=== PATIENT | female | born 1985 | race Caucasian/White ===

== ENCOUNTER 2021-02-08 20:49 | Emergency (ER) | payer OTHER ==
--- NOTE | 2021-02-08 23:30 | EDPHYS ---
Physician Documentation [facility] Name: Yvette Salgado Age: 35 yrs Sex: Female : 1985 Arrival Date: 02/08/2021 Time: 20:55 Bed 12 Private MD: ED Physician Justice Preston HPI: 02/08 23:28 This 35 yrs old Female presents to ER via Ambulatory with complaints of S/S kb of Covid. 23:28 The patient or guardian reports cough, that is intermittent, described as moderate. kb Onset: The symptoms/episode began/occurred 3 day(s) ago. Severity of symptoms: At their worst the symptoms were moderate, in the emergency department the symptoms are unchanged. Modifying factors: The symptoms are alleviated by nothing, the symptoms are aggravated by nothing. Associated signs and symptoms: Pertinent positives: diarrhea, nausea, sore throat, vomiting. The patient has not experienced similar symptoms in the past. The patient has not recently seen a physician. 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 - Social history:: Smoking status: Reported history of juuling and/or vaping. ROS: 23:28 Cardiovascular: Negative for chest pain, palpitations, and edema. kb 23:28 Constitutional: Positive for body aches, chills. 23:28 ENT: Positive for sore throat. 23:28 Respiratory: Positive for cough. 23:28 Abdomen/GI: Positive for nausea, vomiting, and diarrhea. 23:28 All other systems are negative. Exam: 23:28 Constitutional: This is a well developed, well nourished patient who is awake, alert, kb and in no acute distress. Head/Face: Normocephalic, atraumatic. ENT: Moist Mucous membranes Cardiovascular: Regular rate and rhythm with a normal S1 and S2. No gallops, murmurs, or rubs. No pulse deficits. Respiratory: Respirations even and unlabored. No increased work of breathing, no retractions or nasal flaring. Abdomen/GI: Soft, non-tender. No distention Skin: Warm, dry with normal turgor. Normal color. MS/ Extremity: Pulses equal, no cyanosis. Neurovascular intact. Full, normal range of motion. Neuro: Awake and alert, GCS 15, oriented to person, place, time, and situation. Moves all extremities. Normal gait. Psych: Awake, alert, with orientation to person, place and time. Behavior, mood, and affect are within normal limits. Vital Signs: 21:48 BP 120 / 82; Pulse 63; Resp 20; Temp 97.3; Pulse Ox 99% on R/A; Weight 65.77 kg; Height wg 5 ft. 7 in. (170.18 cm); Pain 7/10; 23:41 BP 108 / 63; Pulse 60; Resp 20; Pulse Ox 100% on R/A; ld1 21:48 Body Mass Index 22.71 (65.77 kg, 170.18 cm) wg MDM: 21:53 Patient medically screened. kb 23:28 Data reviewed: vital signs, nurses notes. Data interpreted: Pulse oximetry: on room air kb is 99 %. Interpretation: normal. Counseling: I had a detailed discussion with the patient and/or guardian regarding: the historical points, exam findings, and any diagnostic results supporting the discharge/admit diagnosis, lab results, the need for outpatient follow up, a family practitioner, to return to the emergency department if symptoms worsen or persist or if there are any questions or concerns that arise at home. 02/08 21:53 Order name: Flu; Complete Time: 23:05 kb 02/08 21:53 Order name: Strep; Complete Time: 23:05 kb 02/08 22:54 Order name: Throat Culture EDMS 02/08 23:27 Order name: SARS-COV-2 RT PCR; Complete Time: 23:27 EDNY Administered Medications: No medications were administered Disposition: 02/09 07:59 Co-signature as Attending Physician, Justice Preston MD I agree with the assessment and maricarmen plan of care. Disposition Summary: 02/08/21 23:29 Discharge Ordered Location: Home kb Condition: Stable kb Diagnosis - Acute upper respiratory infection, unspecified kb Followup: kb - With: Emergency Department - When: As needed - Reason: Worsening of condition Followup: kb - With: Private Physician - When: 2 - 3 days - Reason: Recheck today's complaints, Continuance of care, Re-evaluation by your physician Discharge Instructions: - Discharge Summary Sheet kb - Upper Respiratory Infection, Adult, [id number] kb - Viral Respiratory Infection, [id number] kb Forms: - Medication Reconciliation Form kb - Thank You Letter kb - Antibiotic Education kb - Prescription Opioid Use kb Prescriptions: - Zofran 4 mg Oral Tablet - take 1 tablet by ORAL route every 6 hours As needed; 20 tablet; Refills: 0, kb Product Selection Permitted Signatures: Dispatcher [employer] EDAnjelica Johnson FNP-C FNP-Ckb Anderson, Corey, MD MD cha Gamba, Liam, RN souleymane Corrections: (The following items were deleted from the chart) 02/08 21:53 21:52 PMHx: None; 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 EDNY EDNY
--- NOTE | 2021-02-08 23:30 | ER ---
Nurse's Notes [facility] Name: Yvette Salgado Age: 35 yrs Sex: Female : 1985 Arrival Date: 02/08/2021 Time: 20:55 Bed 12 Private MD: Diagnosis: Acute upper respiratory infection, unspecified Presentation: 02/08 21:48 Chief complaint: Patient states: Fever and cough and chills started two days ago. wg N/V/D, urinating slightly less. Coronavirus screen: Vaccine status: Patient reports being unvaccinated. Client presents with at least one sign or symptom that may indicate coronavirus-19. Standard/surgical mask placed on the client. Ebola Screen: Patient negative for fever greater than or equal to 101.5 degrees Fahrenheit, and additional compatible Ebola Virus Disease symptoms Patient denies exposure to infectious person. Patient denies travel to an Ebola-affected area in the 21 days before illness onset. No symptoms or risks identified at this time. Initial Sepsis Screen: Does the patient meet any 2 criteria? No. Patient's initial sepsis screen is negative. Does the patient have a suspected source of infection? No. Patient's initial sepsis screen is negative. Risk Assessment: Do you want to hurt yourself or someone else? Patient reports no desire to harm self or others. Onset of symptoms was February 06, 2021. Care prior to arrival: Medication(s) given: Motrin. 21:48 Method Of Arrival: Ambulatory wg 21:48 Acuity: ANABELLE 4 wg Triage Assessment: 21:52 General: Appears uncomfortable, slender, well groomed, Behavior is calm, cooperative, wg appropriate for age. Pain: Complains of pain in Throat. 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 - Social history:: Smoking status: Reported history of juuling and/or vaping. Vital Signs: 21:48 BP 120 / 82; Pulse 63; Resp 20; Temp 97.3; Pulse Ox 99% on R/A; Weight 65.77 kg; Height wg 5 ft. 7 in. (170.18 cm); Pain 7/10; 23:41 BP 108 / 63; Pulse 60; Resp 20; Pulse Ox 100% on R/A; ld1 21:48 Body Mass Index 22.71 (65.77 kg, 170.18 cm) ED Course: 20:55 Patient arrived in ED. 20:57 Anjelica Perea FNP-C [facility] kb 20:57 Justice Preston MD is Attending Physician. kb 21:52 Triage completed. wg 21:52 Arm band placed on right wrist. wg 23:42 Patient did not have IV access during this emergency room visit. ld1 Administered Medications: No medications were administered Outcome: 23:29 Discharge ordered by . kb 23:41 Discharged to home ambulatory. ld1 23:41 Condition: stable 23:41 Discharge instructions given to patient, Instructed on discharge instructions, follow up and referral plans. medication usage, Demonstrated understanding of instructions, follow-up care, medications, Prescriptions given X 1. 23:42 Patient left the ED. ld1 Signatures: Anjelica Perea FNP-C FNP-Jacque Reyes, RN RN ld1 Leslee العراقي Manish Henderson RN Corrections: (The following items were deleted from the chart) 21:53 21:52 PMHx: None; wg
[2021-02-09 01:10] VITALS: TEMP 97.3
[2021-02-09 01:11] VITALS: BP 108/63; O2SAT 100
== END 2021-02-08 23:42 | disposition home or self-care (01) ==
LOC: ER 20:49
DX: J06.9 Acute upper respiratory infection, unspecified (principal); F32.9 Major depressive disorder, single episode, unspecified; Z20.822 Contact with and (suspected) exposure to COVID-19
CPT/HCPCS: 87070; 87081; 87804 ×2; 99282; U0003